=== PATIENT | female | born 1940 | race Caucasian/White ===

== ENCOUNTER → 2019-04-05 | Outpatient (CLI) | payer MEDICARE, OTHER ==
[~2019-04-05] MED LIST: ALPR.5; LISHYD1012 PO; NAPR220; ONDA4 PO; OXYACE5T PO; Omeprazole20 M1; RXOXYACE PO
[2019-04-07 16:07] LABS: HPV 16 Negative (Negative); HPV 18 Negative (Negative); HPV OTHER HR TYPES Negative (Negative)
== END | disposition home or self-care (01) ==
LOC: LAB SHORT 19:28 → LAB 19:28
PROVIDERS: Physician Assistant
DX: Z01.411 Encounter for gynecological examination (general) (routine) with abnormal findings (principal)
CPT/HCPCS: 87624; G0145

== ENCOUNTER 2020-07-03 06:44 | Day surgery (SDC) | payer MEDICARE, OTHER ==
[~2020-07-03] VITALS: Ht 162.6 cm; Wt 60.7 kg
== END 2020-07-03 09:50 | disposition home or self-care (01) ==
LOC: ORSCSDS 06:44
PROVIDERS: Counselor Professional
PROC: 08RK3JZ Replacement of Left Lens with Synthetic Substitute, Percutaneous Approach (ICD-10-PCS; principal; 2020-07-03 08:15)
DX: H25.12 Age-related nuclear cataract, left eye (principal); I10 Essential (primary) hypertension; F17.210 Nicotine dependence, cigarettes, uncomplicated; K21.9 Gastro-esophageal reflux disease without esophagitis; Z79.899 Other long term (current) drug therapy
CPT/HCPCS: J2001; J2250; J3010; J7120; V2632

== ENCOUNTER → 2022-11-21 | Outpatient (CLI) | payer MEDICARE, OTHER | END | disposition home or self-care (01) | LOC: LAB SHORT 10:02 → LAB 10:02 | DX: N39.0 Urinary tract infection, site not specified (principal) | CPT/HCPCS: 87077; 87086; 87186 ==

== ENCOUNTER 2024-10-27 10:40 | Emergency (ER) | payer MEDICARE, OTHER ==
[~2024-10-27] VITALS: Ht 162.6 cm; Wt 49.9 kg
[2024-10-27] MEDS ORDERED: ALPRAZOLAM0.5 M1 PO (11:13)
[2024-10-27] MEDS ORDERED: albuterol sulfate HF (11:13)
[2024-10-27] MEDS ORDERED: LISI5 PO (11:13)
[2024-10-27 11:39] LABS: BASOPHILS ABSOLUTE AUTO 0.07 K/mm3 (0.00-0.23); BASOPHILS PERCENT AUTO 1 % (0-2); EOSINOPHILS ABSOLUTE AUTO 0.14 K/mm3 (0.00-0.68); EOSINOPHILS PERCENT AUTO 2 % (0-6); Hematocrit 37.7 % (33.0-51.0); Hemoglobin 12.7 g/dL (11.5-16.0); IMMATURE GRAN ABSOLUTE AUTO 0.02 K/mm3 (0.00-0.10); IMMATURE GRAN PERCENT AUTO 0 % (0-1); LYMPHOCYTES ABSOLUTE AUTO 1.15 K/mm3 (0.84-5.20); LYMPHOCYTES PERCENT AUTO 17 % (21-46); MONOCYTES ABSOLUTE AUTO 0.85 K/mm3 (0.16-1.47); MONOCYTES PERCENT AUTO 13 % (4-13); Mean Corpuscular HGB 30.4 pg (26.0-34.0); Mean Corpuscular HGB Conc 33.7 g/dL (31.5-36.5); Mean Corpuscular Volume 90 fL (80-100); Mean Platelet Volume 9.4 fL (9.1-12.4); NEUTROPHILS ABSOLUTE AUTO 4.55 K/mm3 (1.96-9.15); NEUTROPHILS PERCENT AUTO 67 % (41-73); Platelet Count 289 K/mm3 (150-400); RDW Coefficient Variation 13.5 % (11.7-14.2); RDW Standard Deviation 44.2 fL (35.1-46.3); Red Blood Cell Count 4.18 M/mm3 (3.80-5.20); White Blood Cell Count 6.78 K/mm3 (4.00-11.30)
[2024-10-27 12:03] LABS: Calcium, Blood 8.4 mg/dL (8.5-10.1); Creatinine, Blood 0.72 mg/dL (0.40-1.00); Potassium, Blood 4.2 mmol/L (3.5-5.5)
[2024-10-27 12:10] LABS: D-Dimer, Quantitative 4.58 mg/L FEU (0.00-0.52); International Normalized Ratio 1.02; Prothrombin Time Results 10.9 Sec (9.7-11.5)
[2024-10-27 14:15] LABS: Influenza A, PCR NEGATIVE (NEGATIVE); Influenza B, PCR NEGATIVE (NEGATIVE); Resp Syncytial Virus, PCR NEGATIVE (NEGATIVE); SARS-Cov-2 (COVID-19) PCR, MMC NEGATIVE (NEGATIVE)
[2024-10-27 17:23] LABS: Automated BF RBC Count 0.002 M/mm3 (0-0); Automated BF WBC Count 1.049 K/mm3 (0-999)
[2024-10-27 17:24] LABS: Body Fluid WBC Count 1049 /mm3 (0-999); RBC Count, Body Fluid 2000 /mm3 (0-0)
[2024-10-27 18:00] LABS: Glucose, Body Fluid 93 mg/dL; Triglycerides, Body Fluid 16 mg/dL
[2024-10-27] MEDS ORDERED: Rivaroxaban 10 MG Tab PO ONE (18:05)
[2024-10-27 18:06] LABS: Amylase, Body Fluid 50 U/L
[2024-10-27 18:07] LABS: Cholesterol, Body Fluid <50 mg/dL; Lactate Dehydrogenase, Body Fl 144 U/L
[2024-10-27] MEDS ORDERED: Metoprolol Succinate 50 MG TABCR PO ONE (18:10)
[2024-10-27 18:14] LABS: Appearance, Body Fluid Hazy (Clear); Color, Body Fluid Yellow (None-Yellow)
[2024-10-27 18:19] LABS: Total Cell Count, Body Fluid 100
[2024-10-27] MEDS ORDERED: XARELTO20 MG PO (18:21)
[2024-10-27] MEDS ORDERED: METO25ER PO (18:21)
[2024-10-27 19:15] VITALS: BP 131/76
== END 2024-10-27 19:23 | disposition home or self-care (01) ==
LOC: ER 10:40
PROVIDERS: Emergency Medicine; Student in an Organized Health Care Education/Training Program
DX: I82.432 Acute embolism and thrombosis of left popliteal vein (principal); I82.442 Acute embolism and thrombosis of left tibial vein; J90 Pleural effusion, not elsewhere classified; R94.31 Abnormal electrocardiogram [ECG] [EKG]; F17.210 Nicotine dependence, cigarettes, uncomplicated; I10 Essential (primary) hypertension; Z88.6 Allergy status to analgesic agent; Z79.899 Other long term (current) drug therapy
CPT/HCPCS: 0241U; 32555; 71045; 71046; 71260; 80048; 82150; 82465; 82945; 83615; 84157; 84478; 84484; 85025; 85379; 85610; 85730; 87070; 87075; 87102; 87116; 87205; 88108; 88305; 88341; 88342; 89051; 93005; 93010; 93970; 99285-25; A9270; Q9967

== ENCOUNTER 2024-11-14 09:27 | Day surgery (SDC) | payer MEDICARE, OTHER ==
[~2024-11-14 09:27] MED LIST changes: +ALPRAZOLAM0.5 M1 PO; +LISI5 PO; +METO25ER PO; +XARELTO20 MG PO; +albuterol sulfate HF
== END 2024-11-14 23:00 | disposition home or self-care (01) ==
LOC: US 09:27
DX: R91.1 Solitary pulmonary nodule (principal); J90 Pleural effusion, not elsewhere classified; I12.9 Hypertensive chronic kidney disease with stage 1 through stage 4 chronic kidney disease, or unspecified chronic kidney disease; N18.30 Chronic kidney disease, stage 3 unspecified; K21.9 Gastro-esophageal reflux disease without esophagitis; E78.5 Hyperlipidemia, unspecified; F17.210 Nicotine dependence, cigarettes, uncomplicated; Z88.8 Allergy status to other drugs, medicaments and biological substances
CPT/HCPCS: 32555; 71045

== ENCOUNTER 2024-11-27 22:27 | Inpatient (IN) | payer MEDICARE, OTHER ==
[~2024-11-27] VITALS: Ht 162.6 cm; Wt 49.9 kg
[2024-11-27 23:40] LABS: BASOPHILS ABSOLUTE AUTO 0.05 K/mm3 (0.00-0.23); BASOPHILS PERCENT AUTO 1 % (0-2); EOSINOPHILS ABSOLUTE AUTO 0.31 K/mm3 (0.00-0.68); EOSINOPHILS PERCENT AUTO 5 % (0-6); Hematocrit 39.2 % (33.0-51.0); IMMATURE GRAN ABSOLUTE AUTO 0.04 K/mm3 (0.00-0.10); IMMATURE GRAN PERCENT AUTO 1 % (0-1); LYMPHOCYTES ABSOLUTE AUTO 0.59 K/mm3 (0.84-5.20); LYMPHOCYTES PERCENT AUTO 9 % (21-46); MONOCYTES ABSOLUTE AUTO 0.61 K/mm3 (0.16-1.47); MONOCYTES PERCENT AUTO 9 % (4-13); Mean Corpuscular HGB Conc 33.2 g/dL (31.5-36.5); Mean Corpuscular Volume 91 fL (80-100); Mean Platelet Volume 9.4 fL (9.1-12.4); NEUTROPHILS ABSOLUTE AUTO 5.12 K/mm3 (1.96-9.15); NEUTROPHILS PERCENT AUTO 76 % (41-73); Platelet Count 243 K/mm3 (150-400); RDW Coefficient Variation 13.2 % (11.7-14.2); RDW Standard Deviation 44.4 fL (35.1-46.3); Red Blood Cell Count 4.33 M/mm3 (3.80-5.20); White Blood Cell Count 6.72 K/mm3 (4.00-11.30)
[2024-11-27 23:45] LABS: Bicarbonate Venous 27.6 mmol/L (24.0-30.0); PCO2 Venous 50.4 mmHg (38-42); pH Blood Venous 7.39 (7.34-7.37)
[2024-11-27 23:54] LABS: Bun/Creatinine Ratio 15.7 (12.0-20.0); Creatinine, Blood 1.02 mg/dL (0.40-1.00); Potassium, Blood 4.1 mmol/L (3.5-5.5)
[2024-11-27 23:55] LABS: International Normalized Ratio 1.03
[2024-11-28 00:17] LABS: Influenza A, PCR NEGATIVE (NEGATIVE); Influenza B, PCR NEGATIVE (NEGATIVE); Resp Syncytial Virus, PCR NEGATIVE (NEGATIVE); SARS-Cov-2 (COVID-19) PCR, MMC NEGATIVE (NEGATIVE)
[2024-11-28] MEDS ORDERED: Ondansetron HCl 2 MG / ML 2ML Vial IV PRN ×2 (02:20→19:25)
[2024-11-28] MEDS ORDERED: Azithromycin 500 MG in NS 250 ML IV SCH (02:36)
[2024-11-28] MEDS ORDERED: CefTRIAXone Sodium 1,000 MG in NS 100 ML IV SCH (02:36)
[2024-11-28] MEDS ORDERED: SERT50 PO (02:50)
[2024-11-28] MEDS ORDERED: NS 250 ML IV PRN (02:55)
[2024-11-28 03:03] VITALS: BP 122/59
--- NOTE | 2024-11-28 03:31 | NUR ---
SHIFT SUMMARY/TRANSFER NOTE: PT ARRIVED FROM THE ED TO THE MEDICAL FLOOR VIA IKE @5333. USING SLIDING SHEET PT WAS TRANSFERRED TO THE HOSPITAL BED. TRAINING COORDINATORJUAN REZA COMPLETED THE ADMISSION ASSESSMENT, SKIN CHECK WITH THIS MANAGER RENTAL. PT BROUGHT ALL HER BELONINGS WITH HER. KALI WAS PLACED D/T PT TOO WEAK TO TRANSFER TO THE BEDSIDE COMMODE WITH ASSISTANCE. PT IS NPO. O2 @2L VIA NASAL CANNULA WHICH IS PT'S BASELINE, O2 SAT'S>95%. HX OF LEFT BREAST LUMPECTOMY, LEFT LEG DVT. TELE: SINUS BRODIE @52, PT DENIES CP. BED AT THE LOWEST POSITION, CALL LIGHT W/I REACH. EDUCATED BAFFLE INSTALLER LIGHT AND FALL PRECAUTIONS, SMOKING POLICY. RESTING IN BED, EYES CLOSED, RR EVEN, UNLABORED AT THIS TIME.
[2024-11-28 04:23] VITALS: BP 136/58
[2024-11-28 06:05] LABS: BASOPHILS ABSOLUTE AUTO 0.04 K/mm3 (0.00-0.23); BASOPHILS PERCENT AUTO 1 % (0-2); EOSINOPHILS ABSOLUTE AUTO 0.12 K/mm3 (0.00-0.68); EOSINOPHILS PERCENT AUTO 2 % (0-6); Hematocrit 38.8 % (33.0-51.0); IMMATURE GRAN ABSOLUTE AUTO 0.02 K/mm3 (0.00-0.10); IMMATURE GRAN PERCENT AUTO 0 % (0-1); LYMPHOCYTES ABSOLUTE AUTO 0.67 K/mm3 (0.84-5.20); LYMPHOCYTES PERCENT AUTO 10 % (21-46); MONOCYTES ABSOLUTE AUTO 0.47 K/mm3 (0.16-1.47); MONOCYTES PERCENT AUTO 7 % (4-13); Mean Corpuscular HGB 30.7 pg (26.0-34.0); Mean Corpuscular HGB Conc 33.5 g/dL (31.5-36.5); Mean Corpuscular Volume 92 fL (80-100); Mean Platelet Volume 9.3 fL (9.1-12.4); NEUTROPHILS ABSOLUTE AUTO 5.69 K/mm3 (1.96-9.15); NEUTROPHILS PERCENT AUTO 81 % (41-73); Platelet Count 241 K/mm3 (150-400); RDW Coefficient Variation 13.3 % (11.7-14.2); RDW Standard Deviation 45.3 fL (35.1-46.3); Red Blood Cell Count 4.24 M/mm3 (3.80-5.20); White Blood Cell Count 7.01 K/mm3 (4.00-11.30)
[2024-11-28] MEDS ORDERED: Albuterol HFA200 ACT/6.7 GM INH INH PRN (06:30)
[2024-11-28] MEDS ORDERED: NS 1,000 ML IV ONE (06:30)
[2024-11-28 06:39] LABS: Albumin, Blood 2.2 g/dL (3.4-5.0); Albumin/Globulin Ratio 0.8 (0.8-1.8); Bilirubin, Total 0.3 mg/dL (0.1-1.0); Calcium, Blood 7.6 mg/dL (8.5-10.1); Creatinine, Blood 0.82 mg/dL (0.40-1.00); Globulin, Blood 2.9 g/dL (2.2-4.0); Potassium, Blood 4.6 mmol/L (3.5-5.5); Total Protein, Blood 5.1 g/dL (6.4-8.2)
[2024-11-28 07:07] VITALS: BP 113/52
[2024-11-28] MEDS ORDERED: Metoprolol Succinate 25 MG TABCR PO SCH (09:00)
[2024-11-28] MEDS ORDERED: Sertraline HCl 50 MG Tab PO SCH (09:00)
[2024-11-28 11:23] VITALS: BP 114/52
[2024-11-28] MEDS ORDERED: ALPRAZolam 0.5 MG Tab PO PRN (13:55)
[2024-11-28] MEDS ORDERED: Acetaminophen 325 MG TABLET PO PRN (14:20)
[2024-11-28] MEDS ORDERED: TraMADol HCl 50 MG Tab PO PRN (14:25)
[2024-11-28 15:55] VITALS: BP 101/55
--- NOTE | 2024-11-28 17:38 | NUR ---
assumed care of pt pt is a/o x4 vss, pt on left side 2L nc BOB but states this is common and breaths better on her left. pt having difficulty with purwic and was enc to use purwic but pt couldnt. pt was assisted to bathroom using fww and was eventually able urinate. Dr Reese into see pt this afternoon, pt will be npo after midnight for pleurovac insertion in the morning. call light within reach and pt able to make needs known.
[2024-11-28] MEDS ORDERED: Calcium Carbonate 500 MG Tab Chew PO PRN (19:20)
[2024-11-28] MEDS ORDERED: Calcium Carbonate 500 MG Tab Chew PO ONE (19:20)
[2024-11-28 19:37] VITALS: BP 99/47
[2024-11-28] MEDS ORDERED: Metoclopramide HCl 5MG / ML 2ML Vial IV ONE (20:30)
[2024-11-28] MEDS ORDERED: Lactobacil 2-S.Thermo-Bifido 1 1 Cap PO SCH (21:00)
[2024-11-29] VITALS (14 sets, daily range): BP systolic 101–138; BP diastolic 53–73
--- NOTE | 2024-11-29 04:40 | NUR ---
SHIFT SUMMARY: PT AOX4 SOME CONFUSION ON WAKING BUT EASILY REORIENTED. PT CALLS APPROPRIATELY AND IS ABLE TO MAKE NEEDS KNOWN. COMPLAINED OF SEVERE NAUSEA, ZOFRAN GIVEN PER ORDER, INEFFECTIVE PROVIDER NOTIFIED, REGLAN ORDERED. PT STATES FEELING BETTER, ABLE TO TAKE PO MEDS AND TOLERATED WELL. DENIES ANY CP OR SOB. MADE NPO AT MIDNIGHT. NO ACUTE EVENTS OVERNIGHT. PT IN BED SLEEPNIG, BED IN LOWEST POSITION, CALL LIGHT IN REACH. CONTINUING CARE.
[2024-11-29 06:23] LABS: BASOPHILS ABSOLUTE AUTO 0.04 K/mm3 (0.00-0.23); BASOPHILS PERCENT AUTO 1 % (0-2); EOSINOPHILS ABSOLUTE AUTO 0.15 K/mm3 (0.00-0.68); EOSINOPHILS PERCENT AUTO 2 % (0-6); Hematocrit 39.7 % (33.0-51.0); IMMATURE GRAN ABSOLUTE AUTO 0.02 K/mm3 (0.00-0.10); IMMATURE GRAN PERCENT AUTO 0 % (0-1); LYMPHOCYTES ABSOLUTE AUTO 0.65 K/mm3 (0.84-5.20); LYMPHOCYTES PERCENT AUTO 9 % (21-46); MONOCYTES ABSOLUTE AUTO 0.71 K/mm3 (0.16-1.47); MONOCYTES PERCENT AUTO 10 % (4-13); Mean Corpuscular HGB 29.9 pg (26.0-34.0); Mean Corpuscular HGB Conc 32.7 g/dL (31.5-36.5); Mean Corpuscular Volume 91 fL (80-100); Mean Platelet Volume 10.1 fL (9.1-12.4); NEUTROPHILS ABSOLUTE AUTO 5.93 K/mm3 (1.96-9.15); NEUTROPHILS PERCENT AUTO 79 % (41-73); Platelet Count 241 K/mm3 (150-400); RDW Coefficient Variation 13.2 % (11.7-14.2); RDW Standard Deviation 44.9 fL (35.1-46.3); Red Blood Cell Count 4.35 M/mm3 (3.80-5.20)
[2024-11-29 06:55] LABS: Creatinine, Blood 0.74 mg/dL (0.40-1.00)
[2024-11-29] MEDS ORDERED: propofoL 60 ML IV ONE (11:49)
--- NOTE | 2024-11-29 12:23 | NUR ---
20G IV IN LEFT WRIST FLUSHED WITH 10ML'S NACL. PT ABLE TO TRANSFER TO [facility] IN HOSP ROOM WITH STANDBY ASSIST. PT REMOVED T SHIRT AND UNDERWEAR AND LEFT THEM IN HER ROOM. [place] BAND ALSO REMOVED AND GIVEN TO DAUGHTER. GLASSES LEFT IN PT'S ROOM. ALL OTHER BELONGINGS LEFT IN ROOM. PT ARRIVED TO UNIT VIA GURN. WARM BLANKET AND KATIE HUGGER PROVIDED TO PT. NO PAIN OR NAUSEA REPORTED. Patient confirms NPO status and agrees with scheduled surgery. TELE BOX REMAINS ON AND CONNECTED TO THE PT IN PRE OP. History, Chart, Medications and Allergies reviewed before start of procedure. Pre-Op teaching done. Pt verbalizes understanding. CALL LIGHT IN REACH. PT DENIES ANY FURTHER NEEDS AT THIS TIME. PT UPDATED ON DELAY IN PROCEDURE DUE TO PREVIOUS PROCEDURE RUNNING LATE.
[2024-11-29] MEDS ORDERED: PROAIR RESPICL90 MCG INH (12:32)
[2024-11-29] MEDS ORDERED: Lidocaine HCl 1% 5 ML SYR INJ ONE (12:40)
[2024-11-29] MEDS ORDERED: Lactated Ringer's 1,000 ML IV SCH (12:40)
[2024-11-29] MEDS ORDERED: Bupivacaine 0.5% HCl 5 MG/ML 30MLVIAL ONE (13:15)
[2024-11-29] MEDS ORDERED: Ondansetron HCl 2 MG / ML 2ML Vial ONE (14:44)
[2024-11-29] MEDS ORDERED: VISBIOME 112.51 EACH PO (16:09)
[2024-11-29] MEDS ORDERED: CEPH500 PO (16:09)
--- NOTE | 2024-11-29 16:50 | NUR ---
DISCHARGE SUMMARY PT DISCHARGED HOME WITH HH FOR THORACENTESIS TO BE COMPLETED AT HOME PRN FOR SOB AND FLUID OVERLOAD. PLEURX DRAIN PLACED TODAY, DRESSING C/D/I. PT DENIES PAIN. VITALS WNL. DISCHARGE PACKET REVIEWED WITH PT AND PT FAMILY AT BEDSIDE. NEEDED RX FAXED TO [facility] PER PT REQUEST. [facility] DRAIN CATHETER SENT HOME WITH PT WELL DRESSING SUPPLIES. IV REMOVED AND SITE APPEARED WNL. RN WHEELED PT DOWN TO PRIVATE VEHICLE DRIVEN BY PT SON, PT ABLE TO STAND AND AMBULATE TO VEHICLE WITHOUT DIFFICULTY.
== END 2024-11-29 16:38 | disposition home health service (06) | DRG 181 ==
LOC: ER 22:27 → MEDS 22:28 → ERHOLD 22:28 → MEDS 11-28 02:18
PROVIDERS: Emergency Medicine; Family Medicine; Surgery; ADMIT Internal Medicine
PROC: 0W9B30Z Drainage of Left Pleural Cavity with Drainage Device, Percutaneous Approach (ICD-10-PCS; principal; 2024-11-29 11:30)
DX: C34.12 Malignant neoplasm of upper lobe, left bronchus or lung (principal); C77.1 Secondary and unspecified malignant neoplasm of intrathoracic lymph nodes; J91.0 Malignant pleural effusion; J96.11 Chronic respiratory failure with hypoxia; J96.12 Chronic respiratory failure with hypercapnia; I10 Essential (primary) hypertension; J43.9 Emphysema, unspecified; J40 Bronchitis, not specified as acute or chronic; F17.210 Nicotine dependence, cigarettes, uncomplicated; Z99.81 Dependence on supplemental oxygen; Z86.718 Personal history of other venous thrombosis and embolism; Z88.8 Allergy status to other drugs, medicaments and biological substances; Z79.01 Long term (current) use of anticoagulants; Z85.3 Personal history of malignant neoplasm of breast
CPT/HCPCS: 0241U; 36415; 71045; 71260; 80048; 80053; 82803; 83735; 84484; 85025; 85610; 85730; 93005; 93010; 93970; 94760; 94762; 96374; 96375; A9270; C1729; G0378; J0456; J0696; J2405; J2704; J2765; J7030; J7050; J7120; Q9967

== ENCOUNTER 2024-12-02 15:23 | Emergency (ER) | payer MEDICARE, OTHER ==
[~2024-12-02] VITALS: Ht 162.6 cm; Wt 49.9 kg
[~2024-12-02 15:23] MED LIST changes: +CEPH500 PO; +PROAIR RESPICL90 MCG INH; +SERT50 PO; +VISBIOME 112.51 EACH PO
[2024-12-02] MEDS ORDERED: CEPH500 PO (15:43)
[2024-12-02] MEDS ORDERED: ZOLOFT50 MG PO (15:43)
[2024-12-02] MEDS ORDERED: OxyCODONE HCL 5 MG TAB PO ONE (17:25)
[2024-12-02] MEDS ORDERED: Ondansetron HCl 2 MG / ML 2ML Vial IV ONE (17:45)
[2024-12-02 17:46] LABS: BASOPHILS ABSOLUTE AUTO 0.05 K/mm3 (0.00-0.23); BASOPHILS PERCENT AUTO 1 % (0-2); EOSINOPHILS ABSOLUTE AUTO 0.12 K/mm3 (0.00-0.68); EOSINOPHILS PERCENT AUTO 1 % (0-6); Hematocrit 42.9 % (33.0-51.0); Hemoglobin 14.3 g/dL (11.5-16.0); IMMATURE GRAN ABSOLUTE AUTO 0.03 K/mm3 (0.00-0.10); IMMATURE GRAN PERCENT AUTO 0 % (0-1); LYMPHOCYTES ABSOLUTE AUTO 0.84 K/mm3 (0.84-5.20); LYMPHOCYTES PERCENT AUTO 10 % (21-46); MONOCYTES ABSOLUTE AUTO 0.96 K/mm3 (0.16-1.47); MONOCYTES PERCENT AUTO 11 % (4-13); Mean Corpuscular HGB Conc 33.3 g/dL (31.5-36.5); Mean Corpuscular Volume 90 fL (80-100); Mean Platelet Volume 10.9 fL (9.1-12.4); NEUTROPHILS ABSOLUTE AUTO 6.39 K/mm3 (1.96-9.15); NEUTROPHILS PERCENT AUTO 76 % (41-73); Platelet Count 250 K/mm3 (150-400); RDW Coefficient Variation 13.4 % (11.7-14.2); RDW Standard Deviation 45.1 fL (35.1-46.3); Red Blood Cell Count 4.76 M/mm3 (3.80-5.20); White Blood Cell Count 8.39 K/mm3 (4.00-11.30)
[2024-12-02 18:09] LABS: Albumin, Blood 2.5 g/dL (3.4-5.0); Albumin/Globulin Ratio 0.7 (0.8-1.8); Bilirubin, Total 0.4 mg/dL (0.1-1.0); Bun/Creatinine Ratio 21.8 (12.0-20.0); Calcium, Blood 8.2 mg/dL (8.5-10.1); Creatinine, Blood 0.83 mg/dL (0.40-1.00); Globulin, Blood 3.6 g/dL (2.2-4.0); Potassium, Blood 4.1 mmol/L (3.5-5.5); Total Protein, Blood 6.1 g/dL (6.4-8.2)
[2024-12-02] MEDS ORDERED: RX Prepack 6 Tabs Oxycodone 5mg UD ONE (18:20)
[2024-12-02] MEDS ORDERED: Robaxin750 MG PO (18:20)
[2024-12-02 18:51] VITALS: BP 117/64
== END 2024-12-02 18:52 | disposition home or self-care (01) ==
LOC: ER 15:23
PROVIDERS: Student in an Organized Health Care Education/Training Program
DX: R07.81 Pleurodynia (principal); Z93.8 Other artificial opening status; Z87.01 Personal history of pneumonia (recurrent); Z85.118 Personal history of other malignant neoplasm of bronchus and lung; Z88.8 Allergy status to other drugs, medicaments and biological substances; F17.200 Nicotine dependence, unspecified, uncomplicated; I10 Essential (primary) hypertension
CPT/HCPCS: 71045; 80053; 85025; 96374; 99284-25; A9270; J2405